=== PATIENT | female | born 1975 ===

== ENCOUNTER → 2021-01-29 09:18 | Outpatient (CLI) | payer OTHER ==
[~2021-01-29 09:18] MED LIST: NORFLEX100MG PO
== END | disposition home or self-care (01) ==
LOC: NUCLEAR 09:00
PROVIDERS: ATTEND Physical Medicine & Rehabilitation
DX: R20.2 Paresthesia of skin (principal); I77.89 Other specified disorders of arteries and arterioles; I73.9 Peripheral vascular disease, unspecified